=== PATIENT | male | born 2000 | race Caucasian/White ===

== ENCOUNTER 2022-01-18 10:07 | Emergency (ER) | payer SELFPAY ==
[~2022-01-18] VITALS: Ht 193 cm; Wt 74.0 kg
[2022-01-18] MEDS ORDERED: PREDNISONE50 MG PO (11:18)
[2022-01-18] MEDS ORDERED: IBUPROFEN200 MG PO (11:18)
== END 2022-01-18 11:43 | disposition home or self-care (01) ==
LOC: FSED 10:37
DX: R07.89 Other chest pain (principal); R09.1 Pleurisy
CPT/HCPCS: 71046; 99283